=== PATIENT | male | born 2000 | race Caucasian/White ===

== ENCOUNTER 2023-04-10 19:01 | Emergency (ER) | payer SELFPAY ==
[~2023-04-10] VITALS: Ht 177.8 cm; Wt 69.0 kg
[2023-04-10 19:05] VITALS: BP 133/76; PULSE 57; RESP 19; TEMP 99; O2SAT 99
[2023-04-10] MEDS ORDERED: LIDOCAINE HCL/EPINEPHRINE 1%-EPI 1:100,000 20 ML VIAL INFIL ONE (19:15)
[2023-04-10] MEDS ORDERED: BACITRACIN ZINC OINT UDPKT TOP ONE (19:15)
== END 2023-04-10 21:27 | disposition home or self-care (01) ==
LOC: ER 19:01
DX: S61.511A Laceration without foreign body of right wrist, initial encounter (principal); X58.XXXA Exposure to other specified factors, initial encounter; Y93.89 Activity, other specified; Y92.89 Other specified places as the place of occurrence of the external cause; Y99.8 Other external cause status
CPT/HCPCS: 12001; 99283; J3490; Z7610

== ENCOUNTER 2023-04-25 18:51 | Emergency (ER) | payer SELFPAY ==
[~2023-04-25] VITALS: Ht 170.2 cm; Wt 70.3 kg
[2023-04-25 18:58] VITALS: BP 131/72; PULSE 70; RESP 16; TEMP 98.2; O2SAT 100
== END 2023-04-25 19:25 | disposition home or self-care (01) ==
LOC: ER 18:51
DX: S61.511D Laceration without foreign body of right wrist, subsequent encounter (principal); X58.XXXD Exposure to other specified factors, subsequent encounter
CPT/HCPCS: 99281; Z7610